=== PATIENT | female | born 2000 | race Caucasian/White ===

== ENCOUNTER 2020-08-18 23:38 | Emergency (ER) | payer SELFPAY ==
[~2020-08-18] VITALS: Ht 162.6 cm; Wt 112.7 kg
[2020-08-18 23:48] VITALS: TEMP 98.7
[2020-08-19 00:21] LABS: BASO # 0.1 (0.0-0.2); BASO % 0.5 % (0.0-2.0); EOS # 0.2 (0.0-0.7); EOS % 1.5 % (0-4.0); GRAN # 10.3 (1.4-6.5); GRAN % 66.3 % (42.2-75.2); HEMATOCRIT 38.3 % (37.0-47.0); HEMOGLOBIN 12.8 g/dl (12.5-16.0); LYMPH # 3.9 (1.2-3.4); LYMPH % 25.2 % (20.0-51.0); MEAN CELL VOLUME 83 fl (80.0-100.0); MEAN CORPUSCULAR HEMOGLOBIN 28 pg (27.0-31.0); MEAN CORPUSCULAR HGB CONC 33 g/dl (33.0-37.0); MEAN PLATELET VOLUME 9.4 fl (7.4-10.4); MONO # 0.9 (0.1-0.6); PLATELET COUNT 402 K/mm3 (130-400); RED BLOOD COUNT 4.59 M/mm3 (4.10-5.30); REDCELL DISTRIBUTION WIDTH-CV 13.4 % (11.5-14.5)
[2020-08-19] MEDS ORDERED: ZOFRAN ODT4 MG PO (02:27)
[2020-08-19 02:31] VITALS: BP 121/82; PULSE 94
== END 2020-08-19 02:31 | disposition home or self-care (01) ==
LOC: COL.ER 23:38
PROVIDERS: Physician Assistant
DX: O03.9 Complete or unspecified spontaneous abortion without complication (principal); F17.210 Nicotine dependence, cigarettes, uncomplicated
CPT/HCPCS: J2405; J7030